=== PATIENT | male | born 1985 | race Caucasian/White ===

== ENCOUNTER 2016-09-10 11:06 | Emergency (ER) | payer MEDICAID ==
[~2016-09-10] VITALS: Ht 177.8 cm; Wt 70.0 kg
[2016-09-10 11:08] VITALS: BP 132/80; PULSE 91; RESP 16; TEMP 98.2; O2SAT 98
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
[2016-09-10] MEDS ORDERED: BENZTROPINE MESYLATE 2 MG/2 ML VIAL IV PUSH ONE (12:00)
[2016-09-10 12:20] LABS: AUTOMATED NEUTROPHIL # 4.2 TH/MM3 (1.8-7.7); BASOPHIL # 0.1 TH/MM3 (0-0.2); EOSINOPHIL # 0.2 TH/MM3 (0-0.4); EOSINOPHIL % 3.3 % (0.0-4.0); HEMATOCRIT 33.2 % (39.0-51.0); HEMO FLAGS DIFF FINAL; LYMPH % 19.3 % (9.0-44.0); LYMPHOCYTE # 1.2 TH/MM3 (1.0-4.8); MEAN CELL VOLUME 79.8 FL (80.0-100.0); MEAN CORPUSCULAR HEMOGLOBIN 24.9 PG (27.0-34.0); MEAN CORPUSCULAR HGB CONC 31.2 % (32.0-36.0); MONO % 7.9 % (0.0-8.0); NEUT % 68.5 % (16.0-70.0); PLATELET COUNT 231 TH/MM3 (150-450); RED BLOOD COUNT 4.16 MIL/MM3 (4.50-5.90); RED CELL DISTRIBUTION WIDTH 18.4 % (11.6-17.2); WHITE BLOOD COUNT 6.1 TH/MM3 (4.0-11.0)
[2016-09-10 12:34] LABS: ALT (GPT) 50 U/L (12-78); ANION GAP 6 MEQ/L (5-15); AST (GOT) 38 U/L (15-37); BLOOD UREA NITROGEN 10 MG/DL (7-18); CHLORIDE 108 MEQ/L (98-107); GLOMERULAR FILTRATION RATE 98 ML/MIN (>89); POTASSIUM 3.8 MEQ/L (3.5-5.1); SODIUM (NA) 141 MEQ/L (136-145)
[2016-09-10 12:36] LABS: ALKALINE PHOSPHATASE 126 U/L (45-117); TOTAL BILIRUBIN ADULT 0.5 MG/DL (0.2-1.0)
[2016-09-10 12:49] LABS: COMMENT (UR) CULT NOT INDICATED; CULTURE IF INDICATED CULT NOT INDICATED; MUCUS URINE FEW /lpf (OCC)
[2016-09-10 12:54] LABS: BLOOD, URINE MOD (NEG); GLUCOSE,URINE NEG (NEG); KETONE, URINE NEG (NEG); NITRITE,URINE NEG (NEG); PH, URINE 6.5 (5.0-8.5); URINE COLOR YELLOW (YELLW/STRAW)
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
[2016-09-10] MEDS ORDERED: FURO1TAB62 PO (13:47)
[2016-09-10] MEDS ORDERED: BENZ0.5T PO (13:47)
[2016-09-10] MEDS ORDERED: POTA-163 PO (13:47)
--- NOTE | 2016-09-10 13:48 | PD ---
Data Data Last Documented VS Vital Signs Date Time Temp Pulse Resp B/P Pulse Ox O2 Delivery O2 Flow Rate FiO2 09/10/16 11:08 98.2 91 16 132/80 98 Orders Complete Blood Count With Diff (09/10/16 11:49) Comprehensive Metabolic Panel (09/10/16 11:49) ^ Insert Iv (09/10/16 11:49) Urinalysis - C+S If Indicated (09/10/16 11:49) B-Type Natriuretic Peptide (09/10/16 11:49) Us Leg Venous Doppler Bilat (09/10/16 ) Benztropine Inj (Cogentin Inj) (09/10/16 12:00) Labs Laboratory Tests Test 09/10/16 09/10/16 12:00 12:30 White Blood Count 6.1 TH/MM3 Red Blood Count 4.16 MIL/MM3 Hemoglobin 10.4 GM/DL Hematocrit 33.2 % Mean Corpuscular Volume 79.8 FL Mean Corpuscular Hemoglobin 24.9 PG Mean Corpuscular Hemoglobin 31.2 % Concent Red Cell Distribution Width 18.4 % Platelet Count 231 TH/MM3 Mean Platelet Volume 8.1 FL Neutrophils (%) (Auto) 68.5 % Lymphocytes (%) (Auto) 19.3 % Monocytes (%) (Auto) 7.9 % Eosinophils (%) (Auto) 3.3 % Basophils (%) (Auto) 1.0 % Neutrophils # (Auto) 4.2 TH/MM3 Lymphocytes # (Auto) 1.2 TH/MM3 Monocytes # (Auto) 0.5 TH/MM3 Eosinophils # (Auto) 0.2 TH/MM3 Basophils # (Auto) 0.1 TH/MM3 CBC Comment DIFF FINAL Differential Comment Sodium Level 141 MEQ/L Potassium Level 3.8 MEQ/L Chloride Level 108 MEQ/L Carbon Dioxide Level 27.0 MEQ/L Anion Gap 6 MEQ/L Blood Urea Nitrogen 10 MG/DL Creatinine 0.90 MG/DL Estimat Glomerular Filtration 98 ML/MIN Rate Random Glucose 81 MG/DL Calcium Level 8.6 MG/DL Total Bilirubin 0.5 MG/DL Aspartate Amino Transf 38 U/L (AST/SGOT) Alanine Aminotransferase 50 U/L (ALT/SGPT) Alkaline Phosphatase 126 U/L B-Type Natriuretic Peptide 20 PG/ML Total Protein 7.0 GM/DL Albumin 2.8 GM/DL Urine Color YELLOW Urine Turbidity CLEAR Urine pH 6.5 Urine Specific [place] 1.019 Urine Protein TRACE mg/dL Urine Glucose (UA) NEG mg/dL Urine Ketones NEG mg/dL Urine Occult Blood MOD Urine Nitrite NEG Urine Bilirubin NEGATIVE Urine Urobilinogen 2.0 MG/DL Urine Leukocyte Esterase SMALL Urine RBC 50 /hpf Urine WBC 7 /hpf Urine Mucus FEW /lpf Microscopic Urinalysis Comment CULT NOT INDICATED MDM Supervised Visit with [facility]: No Narrative Course pt was also provided a referral to urology Referrals: Ross Paula DO Patient Instructions: General Instructions Additional Instruction: If you develop severe or worsening abdominal pain, fever>100.4, persistent vomiting or inability to eat or drink return to the emergency department immediately. Follow up with your primary care physician in 1-2 days for a check-up. Med/Other Pt SpecificInfo: Prescription(s) given Scripts Potassium Chloride ER 20 Meq Tab20 Meq PO DAILY #10 TAB Ref 0 Prov:Maria Del Carmen Garcia MD 09/10/16 Furosemide (Lasix)20 Mg Tab20 Mg PO DAILY #10 TAB Ref 0 Prov:Maria Del Carmen Garcia MD 09/10/16 Benztropine 0.5 Mg Tab1 Mg PO BID #20 TAB Ref 0 Prov:Maria Del Carmen Garcia MD 09/10/16 Disposition: 01 DISCHARGE HOME Condition: Stable Maria Del Carmen Garcia MD Sep 10, 2016 13:48
== END 2016-09-10 14:15 | disposition home or self-care (01) ==
LOC: NEPD 11:06
DX: R60.0 Localized edema (principal); M54.2 Cervicalgia; G89.28 Other chronic postprocedural pain; D64.9 Anemia, unspecified; R06.02 Shortness of breath; R82.99 Other abnormal findings in urine; Z86.59 Personal history of other mental and behavioral disorders; Z87.19 Personal history of other diseases of the digestive system; Z87.442 Personal history of urinary calculi; Z86.69 Personal history of other diseases of the nervous system and sense organs
CPT/HCPCS: 80053; 81001; 83880; 85025; 93970; 96374; 99285; J0515

== ENCOUNTER → 2017-03-21 | Day surgery (SDC) | payer MEDICAID ==
[~2017-03-21] VITALS: Ht 177.8 cm; Wt 83.9 kg
[~2017-03-21] MED LIST: *morphine SULFATE 4 MG/ML PERIprocedure ONLY ONE; ACETAMINOPHEN 1000 MG/100 ML 100 ML IV ONE; BENZ0.5T PO; CHLORHEXIDINE GLUCONATE 2 % 1 PACK (2 CLOTHS) TOPICAL PRN; DEXAMETHASONE SOD PHOS 4 MG/ML VIAL IV ONE; DO NOT ADM ANY ANTICOAGULANT DRUGS PRN; FURO1TAB62 PO; GLYCOPYRROLATE 1 MG/5 ML SYRINGE IV PUSH ONE; IBUP1TAB7 PO; KETOROLAC TROMETHAMINE 30 MG/ML (IVP) VIAL IV PUSH ONE; KETOROLAC TROMETHAMINE 30 MG/ML (IVP) VIAL ONE; LACTATED RINGER'S 1000 ML INJ 1,000 ML IV ONE; LACTATED RINGER'S 1000 ML IV PRN; LIDOCAINE HCL 1% PF 5 ML SYRINGE OTHER ONE; METOPROLOL TARTRATE 25 MG TAB PO PRN; NEOSTIGMINE 5 MG/5 ML SYRINGE IV PUSH ONE; ONDANSETRON HCL 4 MG/2 ML VIAL IV PUSH ONE; POTA-163 PO; POVIDONE IODINE 5% (ANTISEPSIS KIT) 4 APPLICATIONS EACH NARE PRN; PROPOFOL 200 MG/20 ML AMP IV ONE; ROCURONIUM INJ 50 MG/5 ML SYRINGE IV PUSH ONE; SODIUM CHLORID 0.9% 500 ML IV PRN; ceFAZolin INJ 1,000 MG VIAL IV ONE
[2017-03-21 12:48] LABS: INTERNATIONAL NORMALIZED RATIO 1.1 RATIO; PROTHROMBIN TIME - PATIENT 11.4 SEC (9.8-11.6)
[2017-03-21 18:06] VITALS: BP 107/54; PULSE 73; RESP 20; TEMP 98.8; O2SAT 99
--- NOTE | 2017-03-25 13:17 | MP ---
cc: OPHELIA ARNETT MD DATE OF SURGERY March 21, 2017 PREOPERATIVE DIAGNOSES 1. Bilateral renal calculi status post cystoscopy, right ureteroscopy with lithotripsy and stent placement. 2. Ankylosing spondylitis. POSTOPERATIVE DIAGNOSES 1. Bilateral renal calculi status post cystoscopy, right ureteroscopy with lithotripsy and stent placement. 2. Ankylosing spondylitis. PROCEDURE PERFORMED 1. Cystourethroscopy. 2. Right ureteral stent removal. 3. Right ureteroscopy. 4. Stone basketing with manipulation and removal. SURGEON MD Ruma ANESTHESIA General. COMPLICATIONS None. PREOPERATIVE ANTIBIOTICS Ancef 1 gram IV. DRAINS None. SPECIMENS Right renal calculi for analysis. BLOOD LOSS Minimal. DISPOSITION Stable to Recovery. INDICATIONS The patient is a 31-year-old male with history of ankylosing spondylitis with known bilateral kidney stones. The patient underwent a right uteroscopy with lithotripsy and stent placement by Dr. Guerrero in January at [facility]. Due to insurance changes, he had to change urologist. The patient had a resting KUB done which showed a significant amount of stone remaining in his right kidney but no stones seen in his left kidney. Treatment options were discussed and he elected to proceed with bilateral ureteroscopy. He did have a prior CT several months ago which did show small stones in his left kidney of note. The risks, benefits and alternatives were explained. The patient wished to proceed and informed consent was obtained. DETAILS OF PROCEDURE The patient was properly identified, brought back to the cystoscopy suite where he was laid supine on the cystoscopy table. A proper time-out was performed under the direction of anesthesiology. The patient was induced under general aesthetic. Preoperative antibiotics in the form of Ancef 1 gram IV was given within one hour of the start of the procedure. The patient was then placed in dorsal lithotomy position, prepped and draped in normal sterile surgical fashion. A rigid cystoscope was carefully passed into the patient's bladder per urethra without any difficulty. The distal portion of the renal stent was identified. It did have some calcifications on the stent. Under the guidance of fluoroscopy, I was then able to easily remove the stent just to where the portion of the stent was just outside his urethral meatus. A wire was then passed through the indwelling stent, up into the right kidney. The stone was then removed. A ureteral access sheath was then carefully passed over the wire up into the mid-ureter. The wire was then removed. I then passed a flexible ureteroscope scope all the way up into his right kidney. The patient had a significant amount of stone. The majority if not all of the stone fragments were then removed with a 0-tip basket. The majority of these stones were sent off for analysis. Some of these fragments were larger in size, approximately 8-9 mm. At this point the majority of the kidney appeared to be clean of large fragments. There was some dust fragments remaining which should pass on its own. The rest of the kidney appeared to be normal. This took approximately 1-1/2 hours to clean out this right portion of the kidney. I then retracted the ureteroscope back into his right ureter and examined the entire length of the ureter as I pulled out the ureteral access sheath. His ureter remained widely patent with no evidence of any fragments and minimal trauma. At this time the scope and the ureteral access sheath was removed. Due to the length and time frame in the right kidney, I decided not to operate on the left side at this time and come back at another point. The bladder was then drained. This concluded the procedure. the patient was extubated and sent to Recovery in stable condition. The patient will be discharged home to follow as an outpatient. MD JOSEP Hankins/NATALIA /12:35 PM /12:54 PM
== END | disposition home or self-care (01) ==
LOC: HSDC 11:26
PROVIDERS: ATTEND Urology
DX: N20.0 Calculus of kidney (principal); R31.0 Gross hematuria; M45.2 Ankylosing spondylitis of cervical region; Z01.818 Encounter for other preprocedural examination
CPT/HCPCS: 00918; 52352; 82365; 82370; 85610; 88300; C1769; J0131; J0690; J1100; J1885; J2270; J2405; J2710; J3010; J7120

== ENCOUNTER → 2017-05-09 | Day surgery (SDC) | payer MEDICAID ==
[~2017-05-09] VITALS: Ht 177.8 cm; Wt 53.0 kg
[~2017-05-09] MED LIST changes: +*morphine SULFATE 10 MG/ML PERIprocedure ONLY ONE; -*morphine SULFATE 4 MG/ML PERIprocedure ONLY ONE; -BENZ0.5T PO; +CIPROFLOXACIN 400 MG PREMIX 200 ML IV SCH; -DEXAMETHASONE SOD PHOS 4 MG/ML VIAL IV ONE; +ESMOLOL HCL 100 MG/10 ML VIAL IV ONE; +FAMOTIDINE 20 MG/2 ML VIAL ONE; -FURO1TAB62 PO; +FUROSEMIDE 100 MG/10 ML VIAL ONE; +IBUP200C PO; -KETOROLAC TROMETHAMINE 30 MG/ML (IVP) VIAL IV PUSH ONE; -LACTATED RINGER'S 1000 ML INJ 1,000 ML IV ONE; +MIDAZOLAM HCL 2 MG/2 ML VIAL ONE; +ONDANSETRON HCL 4 MG/2 ML VIAL IV ONE; -ONDANSETRON HCL 4 MG/2 ML VIAL IV PUSH ONE; -POTA-163 PO; -ceFAZolin INJ 1,000 MG VIAL IV ONE; +ePHEDrine/NS 25 MG/5 ML SYRINGE IV ONE; +oxyCODONE/ACETAMINOPHEN 5 MG/325 MG TAB ONE
--- NOTE | 2017-05-09 15:55 | MP ---
cc: Leoncio Hendrix MD DATE OF OPERATION: 05/09/2017 PREOPERATIVE DIAGNOSES: 1. Left renal calculi. 2. Ankylosing spondylitis. 3. History of right renal calculi. POSTOPERATIVE DIAGNOSES: 1. Left renal calculi. 2. Ankylosing spondylitis. 3. History of right renal calculi. PROCEDURE PERFORMED: 1. Cystourethroscopy. 2. Left retrograde pyelogram. 3. Left ureteroscopy. 4. Laser lithotripsy. 5. Stone basketing with manipulation and removal. SURGEON: Leoncio Hendrix MD ANESTHESIA: General. COMPLICATIONS: None. PREOPERATIVE ANTIBIOTICS: Cipro 400 mg IV. DRAINS: None. SPECIMENS: Left renal calculi, for chemical analysis. BLOOD LOSS: 5 mL. DISPOSITION: Stable to recovery. INDICATIONS: The patient is a 32-year-old male with a history of ankylosing spondylitis with longstanding history of kidney stones who presents today for definitive treatment of his left renal calculi. The patient underwent 2 separate procedures to clear his stones out of his right kidney. After treatment options were discussed, he elected to proceed with definitive therapy with laser lithotripsy. After the risks, benefits, and alternatives were explained to the patient, the patient elected to proceed and informed consent was obtained. DETAILS OF PROCEDURE: The patient was appropriately identified and brought back to the cystoscopy suite. He was laid supine on the cystoscopy table. Appropriate time-out was performed. Under the direction of the anesthesiologist, the patient was intubated and induced under general anesthetic. Preoperative antibiotics in the form of Cipro 400 mg IV was given 1 hour prior to the procedure. The patient was then placed in the dorsal lithotomy position, prepped and draped in normal sterile surgical fashion. Using a rigid cystoscope, I carefully passed it into his bladder per urethra without any difficulty. The bladder was examined. No evidence of tumors, stones, diverticula, or trabeculations. The left ureteral orifice was identified. A 5-[place]ong[place] open-ended ureteral catheter was passed gently inside his left ureteral orifice. Left retrograde pyelogram was performed, which showed no evidence of any hydronephrosis and pristine calices. There were no filling defects. Through this indwelling ureteral catheter, I then passed a wire up into the upper pole of his left kidney. The catheter was then removed. Using a ureteral access sheath, I then carefully passed the access sheath over the wire up into the midureter. The wire and the sheath were removed. Using flexible ureteroscope, I went inside the ureteral access sheath up into the left kidney. Several stones were seen in the upper pole and lower pole. These were fragmented with the 200 micron laser fiber. Using Zero Tip basket, these fragments were then removed and sent off for permanent analysis. The rest of the kidney appeared to be stone-free. There was some renal plaques that were seen throughout the kidney, but no other free-floating stone other than very tiny fragments which should pass on their own. At this time, we then carefully examined the ureter in its entirety on the way out as I removed the access sheath. The scope and the access sheath was removed in its entirety. This concluded the procedure. The patient was extubated and sent to recovery in stable condition. Will be discharged home, follow up in 2 weeks. MD JOSEP Hankins/DELORIS/simon , 03:13 PM , 03:39 PM
[2017-05-09 16:50] VITALS: BP 139/73; PULSE 83; RESP 20; TEMP 98; O2SAT 98
== END | disposition home or self-care (01) ==
LOC: HSDC 10:34
PROVIDERS: ATTEND Urology
DX: N20.0 Calculus of kidney (principal)
CPT/HCPCS: 00918; 52353; 74420; 82365; 82370; 88300; C1769; J0131; J0744; J1885; J1940; J2250; J2270; J2405; J2710; J3010; J7120